=== PATIENT | male | born 1960 | race Two or more races ===

== ENCOUNTER 2019-08-22 21:12 | Emergency (ER) | payer MEDICAID ==
[~2019-08-22] VITALS: Ht 165.1 cm; Wt 73.5 kg
[2019-08-22 21:20] VITALS: BP 139/93
--- NOTE | 2019-08-22 21:24 | Emergency Room Report ---
History of Present Illness General Chief Complaint: Alcohol Intoxication Source: Patient, EMS Present Illness HPI This a 58-year-old male who is an alcoholic. He was actually kicked out of the house because of his drinking. He said is been drinking tonight. He was intoxicated and either bystander called 9 1 or patient called 911. Patient does not know. He said he thought his blood pressure may be elevated and he may have high sugar. He denies any fall. No trauma. No suicidal thoughts homicidal thought. Denies any other drug use other than alcohol. Allergies: Coded Allergies: No Known Allergies (Unverified , 08/22/19) Patient History Past Medical History: see triage record, old chart reviewed Past Surgical History: none Pertinent Family History: none Social History: Reports: alcohol use Immunizations: other Reviewed Nursing Documentation: PMH: Agreed; PSxH: Agreed Nursing Documentation-PMH Past Medical History: No Stated History Review of Systems Eye: Denies: eye pain, blurred vision ENT: Denies: ear pain, nose congestion, throat swelling Respiratory: Denies: cough, shortness of breath Cardiovascular: Denies: chest pain, palpitations Gastrointestinal: Denies: abdominal pain, diarrhea, nausea, vomiting Musculoskeletal: Denies: back pain, joint pain Skin: Denies: rash Neurological: Denies: headache, numbness Endocrine: Denies: increased thirst, increased urine Hematologic/Lymphatic: Denies: easy bruising All Other Systems: negative except mentioned in HPI Physical Exam Vital Signs Date Time Temp Pulse Resp B/P (MAP) Pulse Ox O2 Delivery O2 Flow Rate FiO2 08/22/19 21:09 99.0 102 16 160/82 (108) 99 Room Air Vitals with high blood pressure Sp02 EP Interpretation: reviewed, normal General Appearance: well appearing, no apparent distress, alert, other - Intoxicated Head: normocephalic, atraumatic Eyes: bilateral eye PERRL, bilateral eye EOMI ENT: hearing grossly normal, normal pharynx Neck: full range of motion, supple, no meningismus Respiratory: chest non-tender, lungs clear, normal breath sounds Cardiovascular #1: regular rate, rhythm, no murmur Gastrointestinal: normal bowel sounds, non tender, no mass, no organomegaly, no bruit, non-distended Musculoskeletal: back normal, normal range of motion Psychiatric: mood/affect normal Medical Decision Making Diagnostic Impression: Primary Impression: Acute alcoholic intoxication Qualified Codes: F10.920 - Alcohol use, unspecified with intoxication, uncomplicated ER Course Patient with alcohol intoxication. No trauma to warrant x-ray or CT scan. His blood pressure normalized here. It is now 126/89. His Accu-Chek is normal. Will observe until clinical sobriety. Will discharge afterward. Last Vital Signs Date Time Temp Pulse Resp B/P (MAP) Pulse Ox O2 Delivery O2 Flow Rate FiO2 08/22/19 21:09 99.0 102 16 160/82 (108) 99 Room Air Status: improved Disposition: HOME, SELF-CARE Condition: Stable Patient Instructions: Alcohol Intoxication, [id number] Additional Instructions: Follow-up with your doctor in 7 days. Stop drinking alcohol. Return if worse. Alden Stone MD Aug 22, 2019 21:24
[2019-08-22 23:38] VITALS: BP_SYST 125; BP_SYST 132; BP_DIAS 79; BP_DIAS 86
[2019-08-23 01:35] VITALS: BP 127/75
[2019-08-23 04:13] VITALS: BP 124/80
[2019-08-23 06:19] VITALS: BP 134/82
[2019-08-23 06:31] VITALS: BP 134/82
== END 2019-08-23 06:31 | disposition home or self-care (01) ==
LOC: EDBD 21:12 → EMR 21:15
DX: F10.129 Alcohol abuse with intoxication, unspecified (principal)
CPT/HCPCS: 99283